=== PATIENT | male | born 1965 | race Caucasian/White ===

== ENCOUNTER 2017-01-10 20:27 | Inpatient (IN) | payer MEDICAID, OTHER ==
[~2017-01-10] VITALS: Ht 167.6 cm; Wt 64.0 kg
[2017-01-10] MEDS ORDERED: METO25 PO (21:28)
[2017-01-10 21:51] LABS: ANION GAP 12 mmol/L (8-16); BASOPHILS # (AUTO) 0.02 K/uL (0.00-0.20); BASOPHILS % (AUTO) 0.7 % (0.0-2.0); CALCIUM, TOTAL 8.6 mg/dL (8.8-10.5); CARBON DIOXIDE 26 mmol/L (22-29); CHLORIDE 102 mmol/L (98-107); CREATININE 0.71 mg/dL (0.60-1.30); EOSINOPHILS # (AUTO) 0.23 K/uL (0.00-0.70); EOSINOPHILS % (AUTO) 6.96 % (1.0-6.0); GLOMERULAR FILTR. RATE CALC > 60 mL/min (>60); HEMATOCRIT 34.9 % (41-53); HEMOGLOBIN 11.8 g/dL (13.5-17.5); LYMPHOCYTES % (AUTO) 29.2 % (22.0-44.0); MEAN CORPUSCULAR HEMOGLOBIN 33.7 pg (26.0-34.0); MEAN CORPUSCULAR HGB CONC 33.9 G/dL (31.0-37.0); MEAN CORPUSCULAR VOLUME 99 fL (80-100); MONOCYTES # (AUTO) 0.3 K/uL (0.1-1.0); MONOCYTES % (AUTO) 8.2 % (2.0-9.0); NEUTROPHILS # (AUTO) 1.8 K/uL (1.8-7.7); POTASSIUM 3.5 mmol/L (3.5-5.1); RED BLOOD CELL COUNT(AUTO) 3.51 MIL/uL (4.50-5.90); RED CELL DISTRIBUTION WIDTH 14.8 % (11.5-14.5); SODIUM SERUM 140 mmol/L (136-145); UREA NITROGEN, BLOOD 7 mg/dL (7-18); WHITE BLOOD COUNT (AUTO) 3.3 K/uL (4.5-11.0)
[2017-01-10 21:56] LABS: ALANINE AMINOTRANSFERASE 40 U/L (12-78); ALBUMIN 4.1 g/dL (3.4-5.0); ASPARTATE AMINOTRANSFERASE 56 U/L (15-37); BILIRUBIN,TOTAL 1.3 mg/dL (0.1-1.0); TOTAL PROTEIN, SERUM 9.2 g/dL (6.4-8.2)
[2017-01-10 22:26] LABS: PLATELET COUNT (AUTO) 51 K/uL (150-450)
[2017-01-10] MEDS ORDERED: LORazepam 2 MG TABLET PO ONE (23:45)
[2017-01-11] VITALS (12 sets, daily range): BP systolic 94–121; BP diastolic 42–69
[2017-01-11] MEDS ORDERED: OLANZapine 5 MG RAPDIS TABLET PO PRN (05:30)
[2017-01-11] MEDS ORDERED: ZOLPIDEM TARTRATE 10 MG TABLET PO PRN (05:30)
[2017-01-11] MEDS ORDERED: LORazepam 2 MG TABLET PO PRN (05:30)
[2017-01-11 05:56] LABS: APPEARANCE,URINE CLEAR (CLEAR); GLUCOSE, URINE (UA) NEGATIVE (NEGATIVE); KETONES,URINE NEGATIVE (NEGATIVE); LEUKOCYTE ESTERASE ,URINE NEGATIVE (NEGATIVE); OCCULT BLOOD,URINE NEGATIVE (NEGATIVE); PH,URINE 5.5 (5.0-8.0); PROTEIN,URINE NEGATIVE (NEGATIVE)
[2017-01-11 05:57] LABS: ADD UA MICROSCOPIC NO
[2017-01-11 06:06] LABS: CHOL/HDL RATIO 1.8 (4.2-7.3)
[2017-01-11] MEDS ORDERED: MAGNESIUM HYDROXIDE SUSPENSION 30 ML UDCUP PO PRN (12:30)
[2017-01-11] MEDS ORDERED: PROMETHAZINE HCL 25 MG TABLET PO PRN (12:30)
[2017-01-11] MEDS ORDERED: HydrOXYzine PAMOATE 50 MG CAPSULE PO PRN (12:30)
[2017-01-11] MEDS ORDERED: CYANOCOBALAMIN 1,000 MCG/ML VIAL IM ONE (12:30)
[2017-01-11] MEDS ORDERED: LOPERAMIDE HCL 2 MG CAPSULE PO PRN ×2 (12:30)
[2017-01-11] MEDS ORDERED: MAG HYDROX/AL HYDROX/SIMETH ES 30 ML SUSPENSION UDCUP PO PRN (12:30)
[2017-01-11] MEDS ORDERED: TUBERCULIN, PURIFIED PROTEIN DERIVATIVE 5 TU/0.1 ML SYG ID ONE (12:30)
[2017-01-11] MEDS ORDERED: DIAZEPAM 10 MG TABLET PO PRN (12:30)
[2017-01-11] MEDS ORDERED: GuaiFENesin/D-METHORPHAN [SUGAR-FREE] 200-20MG/10 ML SYRUP UDCUP PO PRN (12:30)
[2017-01-11] MEDS ORDERED: ACETAMINOPHEN 325 MG TABLET PO PRN (12:30)
[2017-01-11] MEDS ORDERED: PNEUMOCOCCAL VACCINE POLYVALENT 0.5 ML VIAL [PPSV23] IM ONE (12:45)
[2017-01-11] MEDS: THIAMINE HCL 100 MG TABLET PO SCH (16:50)
[2017-01-12] VITALS (8 sets, daily range): BP systolic 105–127; BP diastolic 48–77
[2017-01-12] MEDS ORDERED: DIAZEPAM 10 MG TABLET PO PRN (07:00)
[2017-01-12] MEDS ORDERED: DULoxetine HCL 20 MG CAPSULE PO SCH (09:00)
[2017-01-12] MEDS: THIAMINE HCL 100 MG TABLET PO SCH ×2 (09:01→16:52)
[2017-01-12] MEDS: MULTIVITAMINS WITH MINERALS, THERAPEUTIC TABLET PO SCH (09:01)
[2017-01-12] MEDS: NALTREXONE HCL 50 MG TABLET PO SCH (09:01)
[2017-01-12] MEDS: DIAZEPAM 10 MG TABLET PO SCH ×4 (09:01→21:11)
[2017-01-12] MEDS: FOLIC ACID 1 MG TABLET PO SCH (09:01)
[2017-01-12] MEDS ORDERED: NALT50 PO (14:44)
[2017-01-12] MEDS ORDERED: DULO20CA30 PO (14:44)
[2017-01-13 05:45] VITALS: BP 110/59
[2017-01-13 08:40] VITALS: BP 109/58
[2017-01-13] MEDS ORDERED: DULoxetine HCL 30 MG CAPSULE PO SCH (09:00)
[2017-01-13] MEDS: NALTREXONE HCL 50 MG TABLET PO SCH (10:28)
[2017-01-13] MEDS: MULTIVITAMINS WITH MINERALS, THERAPEUTIC TABLET PO SCH (10:28)
[2017-01-13] MEDS: THIAMINE HCL 100 MG TABLET PO SCH (10:28)
[2017-01-13] MEDS: DIAZEPAM 10 MG TABLET PO SCH (10:28)
[2017-01-13] MEDS: FOLIC ACID 1 MG TABLET PO SCH (10:29)
[2017-01-14] MEDS ORDERED: DIAZEPAM 5 MG TABLET PO PRN (07:00)
[2017-01-14] MEDS ORDERED: DIAZEPAM 5 MG TABLET PO SCH (09:00)
[2017-01-15] MEDS ORDERED: DIAZEPAM 5 MG TABLET PO PRN (07:00)
== END 2017-01-13 11:55 | disposition home or self-care (01) | DRG 751 ==
LOC: EMS 20:29 → B2S 01-11 10:09 → EMS 01-11 10:33
PROVIDERS: ADMIT Psychiatry & Neurology Psychiatry; ATTEND Psychiatry & Neurology Psychiatry
PROC: 3E0234Z Introduction of Serum, Toxoid and Vaccine into Muscle, Percutaneous Approach (ICD-10-PCS; principal; 2017-01-11)
PROC: HZ2ZZZZ Detoxification Services for Substance Abuse Treatment (ICD-10-PCS; 2017-01-11)
PROC: HZ89ZZZ Medication Management for Substance Abuse Treatment, Other Replacement Medication (ICD-10-PCS; 2017-01-11)
PROC: GZ51ZZZ Individual Psychotherapy, Behavioral (ICD-10-PCS; 2017-01-11)
DX: F33.9 Major depressive disorder, recurrent, unspecified (principal); D61.818 Other pancytopenia; R45.851 Suicidal ideations; I10 Essential (primary) hypertension; H54.8 Legal blindness, as defined in USA; D64.9 Anemia, unspecified; F10.10 Alcohol abuse, uncomplicated; Y90.8 Blood alcohol level of 240 mg/100 ml or more; G89.29 Other chronic pain; Z23 Encounter for immunization; Z91.19 Patient's noncompliance with other medical treatment and regimen; Z79.899 Other long term (current) drug therapy
CPT/HCPCS: 90471; 99285; G0480; J3420

== ENCOUNTER 2017-01-30 21:51 | Inpatient (IN) | payer MEDICAID ==
[~2017-01-30] VITALS: Ht 167.6 cm; Wt 62.9 kg
[~2017-01-30 21:51] MED LIST: DULO20CA30 PO; NALT50 PO
[2017-01-30 22:15] LABS: BASOPHILS % (AUTO) 0.6 % (0.0-2.0); EOSINOPHILS % (AUTO) 6.9 % (1.0-6.0); HEMATOCRIT 36.2 % (41-53); LYMPHOCYTES # (AUTO) 1.7 K/uL (1.0-4.8); LYMPHOCYTES % (AUTO) 41.7 % (22.0-44.0); MEAN CORPUSCULAR HEMOGLOBIN 32.5 pg (26.0-34.0); MEAN CORPUSCULAR HGB CONC 33.1 G/dL (31.0-37.0); MEAN CORPUSCULAR VOLUME 98 fL (80-100); MONOCYTES # (AUTO) 0.2 K/uL (0.1-1.0); MONOCYTES % (AUTO) 4.1 % (2.0-9.0); NEUTROPHILS % (AUTO) 46.7 % (40.0-70.0); RED BLOOD CELL COUNT(AUTO) 3.69 MIL/uL (4.50-5.90); RED CELL DISTRIBUTION WIDTH 14.3 % (11.5-14.5); WHITE BLOOD COUNT (AUTO) 4.2 K/uL (4.5-11.0)
[2017-01-30 22:21] LABS: ANION GAP 12 mmol/L (8-16); CALCIUM, TOTAL 8.5 mg/dL (8.8-10.5); CARBON DIOXIDE 25 mmol/L (22-29); CHLORIDE 101 mmol/L (98-107); CREATININE 0.77 mg/dL (0.60-1.30); GLOMERULAR FILTR. RATE CALC > 60 mL/min (>60); POTASSIUM 3.6 mmol/L (3.5-5.1); SODIUM SERUM 138 mmol/L (136-145); UREA NITROGEN, BLOOD 10 mg/dL (7-18)
[2017-01-30 22:25] LABS: PLATELET COUNT (AUTO) 26 K/uL (150-450)
[2017-01-30 22:27] LABS: ALANINE AMINOTRANSFERASE 38 U/L (12-78); ALBUMIN 4.2 g/dL (3.4-5.0); ASPARTATE AMINOTRANSFERASE 75 U/L (15-37); BILIRUBIN,TOTAL 1.3 mg/dL (0.1-1.0); RBC MORPHOLOGY COMMENT NORMAL RBC MORPH; TOTAL PROTEIN, SERUM 9.1 g/dL (6.4-8.2)
[2017-01-30] MEDS ORDERED: QUEtiapine FUMARATE 100 MG TABLET PO PRN (23:15)
[2017-01-30] MEDS ORDERED: ZOLPIDEM TARTRATE 10 MG TABLET PO PRN (23:15)
[2017-01-30 23:31] LABS: ADD UA MICROSCOPIC YES; APPEARANCE,URINE CLEAR (CLEAR); GLUCOSE, URINE (UA) NEGATIVE (NEGATIVE); KETONES,URINE NEGATIVE (NEGATIVE); LEUKOCYTE ESTERASE ,URINE NEGATIVE (NEGATIVE); OCCULT BLOOD,URINE TRACE (NEGATIVE); PROTEIN,URINE NEGATIVE (NEGATIVE)
[2017-01-30 23:34] LABS: CHOL/HDL RATIO 1.5 (4.2-7.3)
[2017-01-30 23:45] LABS: RBC,URINE 0-2 /HPF (0-2)
[2017-01-30 23:46] LABS: WBC,URINE 0-2 /HPF (0-5)
[2017-01-31] MEDS: LORazepam 2 MG TABLET PO PRN (09:10)
[2017-01-31 20:45] VITALS: BP 120/57
[2017-01-31] MEDS ORDERED: LORazepam 2 MG TABLET PO PRN (20:45)
[2017-01-31] MEDS ORDERED: ESZOPICLONE 2 MG TABLET PO PRN (20:45)
[2017-01-31 21:05] VITALS: BP 120/57
[2017-01-31 22:00] VITALS: BP 113/58
[2017-01-31 23:00] VITALS: BP 117/60
[2017-02-01] VITALS: BP 122/59
[2017-02-01 04:00] VITALS: BP 123/60
[2017-02-01] MEDS ORDERED: LORazepam 2 MG TABLET PO PRN (07:00)
[2017-02-01] MEDS: LORazepam 2 MG TABLET PO SCH ×4 (08:19→21:26)
[2017-02-01] MEDS: CarBAMazepine 200 MG TABLET PO SCH ×2 (08:20→17:12)
[2017-02-01] MEDS: DULoxetine HCL 30 MG CAPSULE PO SCH (08:20)
[2017-02-01 08:45] VITALS: BP 127/61
[2017-02-01 08:46] VITALS: BP 127/61
[2017-02-01 12:34] VITALS: BP 136/74
[2017-02-01] MEDS ORDERED: NALT50 PO (17:56)
[2017-02-01] MEDS ORDERED: CARB200T6 PO (17:56)
[2017-02-01] MEDS ORDERED: DULO30CA2 PO (17:56)
[2017-02-01] MEDS ORDERED: GABA-531 PO (17:56)
[2017-02-01] MEDS ORDERED: LOPERAMIDE HCL 2 MG CAPSULE PO PRN (18:00)
[2017-02-01] MEDS ORDERED: HydrOXYzine PAMOATE 50 MG CAPSULE PO PRN (18:00)
[2017-02-01] MEDS ORDERED: CYANOCOBALAMIN 1,000 MCG/ML VIAL IM ONE (18:00)
[2017-02-01] MEDS ORDERED: PROMETHAZINE HCL 25 MG TABLET PO PRN (18:00)
[2017-02-01] MEDS ORDERED: MAGNESIUM HYDROXIDE SUSPENSION 30 ML UDCUP PO PRN (18:00)
[2017-02-01] MEDS ORDERED: MAG HYDROX/AL HYDROX/SIMETH ES 30 ML SUSPENSION UDCUP PO PRN (18:00)
[2017-02-01] MEDS ORDERED: GuaiFENesin/D-METHORPHAN [SUGAR-FREE] 200-20MG/10 ML SYRUP UDCUP PO PRN (18:00)
[2017-02-01] MEDS: GABAPENTIN 300 MG CAPSULE PO SCH (21:26)
[2017-02-01 21:58] VITALS: BP 124/61
[2017-02-02] VITALS (9 sets, daily range): BP systolic 103–128; BP diastolic 58–68
[2017-02-02] MEDS: LORazepam 2 MG TABLET PO PRN (00:27)
[2017-02-02] MEDS ORDERED: DiphenhydrAMINE HCL 50 MG/ML VIAL IM ONE ×2 (08:30→16:30)
[2017-02-02] MEDS ORDERED: HALOPERIDOL LACTATE 5 MG/ML VIAL IM ONE ×2 (08:30→16:30)
[2017-02-02] MEDS: THIAMINE HCL 100 MG TABLET PO SCH ×2 (09:00→17:00)
[2017-02-02] MEDS: NALTREXONE HCL 50 MG TABLET PO SCH (09:00)
[2017-02-02] MEDS: DULoxetine HCL 30 MG CAPSULE PO SCH (09:00)
[2017-02-02] MEDS: FOLIC ACID 1 MG TABLET PO SCH (09:00)
[2017-02-02] MEDS: GABAPENTIN 300 MG CAPSULE PO SCH ×4 (09:00→21:27)
[2017-02-02] MEDS: MULTIVITAMINS WITH MINERALS, THERAPEUTIC TABLET PO SCH (09:00)
[2017-02-02] MEDS: LORazepam 2 MG TABLET PO SCH ×4 (09:00→21:27)
[2017-02-02] MEDS: CarBAMazepine 200 MG TABLET PO SCH ×2 (09:00→17:00)
[2017-02-02] MEDS ORDERED: LORazepam 2 MG/ML VIAL ONE (16:25)
[2017-02-02] MEDS ORDERED: LORazepam 2 MG/ML VIAL IM ONE (16:30)
[2017-02-03 04:11] VITALS: BP 98/61
[2017-02-03] MEDS ORDERED: LORazepam 1 MG TABLET PO PRN (07:00)
[2017-02-03] MEDS ORDERED: LORazepam 1 MG TABLET PO SCH (09:00)
[2017-02-03] MEDS: NALTREXONE HCL 50 MG TABLET PO SCH (09:30)
[2017-02-03] MEDS: GABAPENTIN 300 MG CAPSULE PO SCH (09:30)
[2017-02-03] MEDS: FOLIC ACID 1 MG TABLET PO SCH (09:30)
[2017-02-03] MEDS: THIAMINE HCL 100 MG TABLET PO SCH (09:31)
[2017-02-03] MEDS: MULTIVITAMINS WITH MINERALS, THERAPEUTIC TABLET PO SCH (09:31)
[2017-02-03] MEDS: CarBAMazepine 200 MG TABLET PO SCH (09:31)
[2017-02-03] MEDS ORDERED: IBUPROFEN 600 MG TABLET PO PRN (10:00)
[2017-02-03] MEDS ORDERED: ACETAMINOPHEN 325 MG TABLET PO PRN (10:00)
[2017-02-03 10:09] VITALS: BP 100/50
[2017-02-04] MEDS ORDERED: LORazepam 1 MG TABLET PO PRN (07:00)
[2017-02-04] MEDS ORDERED: LIDOCAINE HCL/PF 1% 30 ML VIAL ONE (10:42)
[2017-02-04] MEDS ORDERED: SODIUM CHLORIDE 0.9% 100 ML ONE (10:42)
[2017-02-04] MEDS ORDERED: LIDOCAINE HCL 1%/EPI 1:200,000/PF 30 ML VIAL ONE (10:43)
[2017-02-04] MEDS ORDERED: VANCOMYCIN HCL 1 GM/VIAL ONE (10:44)
[2017-02-04] MEDS ORDERED: GELATIN SPONGE,ABSORBABLE 100 MM TP ONE (10:44)
[2017-02-04] MEDS ORDERED: THROMBIN, BOVINE 20000 UNITS/VIAL POWDER TP ONE (10:44)
[2017-02-04] MEDS ORDERED: BACITRACIN 28.4 GM OINTMENT TP ONE (10:45)
[2017-02-04] MEDS ORDERED: HEPARIN SODIUM 1000 UNITS/NS 500 ML ONE (10:45)
[2017-02-04] MEDS ORDERED: LOPERAMIDE HCL 2 MG CAPSULE PO PRN (18:00)
== END 2017-02-03 11:45 | disposition short-term general hospital (02) | DRG 751 ==
LOC: EMS 21:54 → 3EI 01-31 08:02 → 3EC 02-02 19:13
PROVIDERS: ADMIT Psychiatry & Neurology Psychiatry; ATTEND Psychiatry & Neurology Psychiatry
DX: F33.2 Major depressive disorder, recurrent severe without psychotic features (principal); R45.851 Suicidal ideations; R16.0 Hepatomegaly, not elsewhere classified; K70.10 Alcoholic hepatitis without ascites; I10 Essential (primary) hypertension; D50.9 Iron deficiency anemia, unspecified; F10.229 Alcohol dependence with intoxication, unspecified; Z91.14 Patient's other noncompliance with medication regimen; H54.8 Legal blindness, as defined in USA; I35.1 Nonrheumatic aortic (valve) insufficiency; Y90.8 Blood alcohol level of 240 mg/100 ml or more; Z78.1 Physical restraint status
CPT/HCPCS: 70450; 99285; G0480; J1200; J1630; J1644; J2060; J3370; J3420; J3490; J7050

== ENCOUNTER 2017-02-03 12:00 | Inpatient (IN) | payer OTHER ==
[~2017-02-03 12:00] MED LIST changes: +AMOX500C2 PO; +CARB200T6 PO; +DULO30CA2 PO; +FERR324T4 PO; +GABA-531 PO; +METO25 PO; +OXYC5TAB3 PO
[2017-02-03 14:40] VITALS: BP 106/56
[2017-02-03 16:00] VITALS: BP 98/52
[2017-02-03] MEDS ORDERED: BISACODYL 10 MG RECTAL RECTAL SUPPOSITORY PR PRN (17:15)
[2017-02-03] MEDS ORDERED: ZOLPIDEM TARTRATE 5 MG TABLET PO PRN (17:15)
[2017-02-03] MEDS ORDERED: MAGNESIUM HYDROXIDE SUSPENSION 30 ML UDCUP PO PRN (17:15)
[2017-02-03 20:00] VITALS: BP 106/55
[2017-02-03] MEDS: CarBAMazepine 200 MG TABLET PO SCH (21:04)
[2017-02-03] MEDS: GABAPENTIN 300 MG CAPSULE PO SCH (21:04)
[2017-02-03 23:00] VITALS: BP 104/44
[2017-02-03] MEDS: ACETAMINOPHEN 325 MG TABLET PO PRN (23:06)
[2017-02-04] VITALS (20 sets, daily range): BP systolic 90–163; BP diastolic 29–75
[2017-02-04] MEDS ORDERED: FentaNYL CITRATE-PF 100 MCG/2 ML VIAL IVP ONE ×2 (00:11→19:15)
[2017-02-04] MEDS ORDERED: ROCURONIUM BROMIDE 10 MG/ML 5 ML VIAL IVP ONE ×2 (00:11→00:19)
[2017-02-04] MEDS ORDERED: PHENYLEPHRINE HCL 10 MG/ML VIAL IVP ONE (00:11)
[2017-02-04] MEDS ORDERED: MIDAZOLAM HCL 2 MG/2 ML VIAL IVP ONE ×2 (00:11→19:15)
[2017-02-04] MEDS ORDERED: DEXAMETHASONE SOD PHOS 4 MG/ML VIAL IVP ONE (00:11)
[2017-02-04] MEDS ORDERED: 0.9% SODIUM CHLORIDE 10 ML VIAL IVP ONE (00:11)
[2017-02-04] MEDS ORDERED: HYDROmorphone 2 MG/ML SYRINGE IVP ONE (00:11)
[2017-02-04] MEDS ORDERED: ETOMIDATE 2 MG/ML 10 ML VIAL IVP ONE (00:19)
[2017-02-04] MEDS: ONDANSETRON HCL 4 MG/2 ML VIAL IVP PRN ×2 (00:44→08:56)
[2017-02-04 06:06] LABS: BASOPHILS % (AUTO) 0.1 % (0.0-2.0); EOSINOPHILS % (AUTO) 0.1 % (1.0-6.0); HEMATOCRIT 25.2 % (41-53); HEMOGLOBIN 8.4 g/dL (13.5-17.5); LYMPHOCYTES # (AUTO) 0.2 K/uL (1.0-4.8); LYMPHOCYTES % (AUTO) 3.4 % (22.0-44.0); MEAN CORPUSCULAR HEMOGLOBIN 33.3 pg (26.0-34.0); MEAN CORPUSCULAR HGB CONC 33.4 G/dL (31.0-37.0); MEAN CORPUSCULAR VOLUME 100 fL (80-100); MONOCYTES # (AUTO) 0.4 K/uL (0.1-1.0); MONOCYTES % (AUTO) 7.2 % (2.0-9.0); NEUTROPHILS # (AUTO) 5.4 K/uL (1.8-7.7); PLATELET COUNT (AUTO) 33 K/uL (150-450); RED BLOOD CELL COUNT(AUTO) 2.52 MIL/uL (4.50-5.90); RED CELL DISTRIBUTION WIDTH 13.8 % (11.5-14.5); WHITE BLOOD COUNT (AUTO) 6.1 K/uL (4.5-11.0)
[2017-02-04 06:19] LABS: ANION GAP 9 mmol/L (8-16); CALCIUM, TOTAL 8.3 mg/dL (8.8-10.5); CARBON DIOXIDE 26 mmol/L (22-29); CHLORIDE 98 mmol/L (98-107); CHOL/HDL RATIO 1.8 (4.2-7.3); CREATINE KINASE, TOTAL 275 U/L (39-308); CREATININE 0.73 mg/dL (0.60-1.30); GLOMERULAR FILTR. RATE CALC > 60 mL/min (>60); POTASSIUM 3.4 mmol/L (3.5-5.1); SODIUM SERUM 133 mmol/L (136-145); UREA NITROGEN, BLOOD 15 mg/dL (7-18)
[2017-02-04 06:27] LABS: CREATINE KINASE MB < 0.5 ng/mL (0-5)
[2017-02-04 07:31] LABS: NEUTROPHILS % (AUTO) 89.2 % (40.0-70.0)
[2017-02-04 07:45] LABS: HEMOGLOBIN A1C 4.7 % (4.5-6.2)
[2017-02-04] MEDS: FOLIC ACID 1 MG TABLET PO SCH (09:00)
[2017-02-04] MEDS ORDERED: DULoxetine HCL 30 MG CAPSULE PO SCH (09:00)
[2017-02-04] MEDS: THIAMINE HCL 100 MG TABLET PO SCH (09:00)
[2017-02-04] MEDS: GABAPENTIN 300 MG CAPSULE PO SCH ×4 (09:00→21:00)
[2017-02-04] MEDS: PANTOPRAZOLE SODIUM 40 MG DR TABLET PO SCH (09:00)
[2017-02-04] MEDS: CarBAMazepine 200 MG TABLET PO SCH ×2 (09:00→21:00)
[2017-02-04 09:33] LABS: INR 1.1 (0.9-1.1); PROTHROMBIN TIME 12.1 SEC (9.4-11.6)
[2017-02-04] MEDS ORDERED: POTASSIUM CHL 10 MEQ/WATER 200 ML IV ONE (09:52)
[2017-02-04] MEDS ORDERED: SODIUM CHLORIDE 0.9% 1,000 ML IV ONE ×2 (09:56→17:03)
[2017-02-04] MEDS: POTASSIUM CHL 10 MEQ/WATER 50 ML IV SCH ×4 (10:30→13:40)
[2017-02-04] MEDS ORDERED: HEPARIN SODIUM 1000 UNITS/NS 0 ML ONE (11:04)
[2017-02-04] MEDS ORDERED: SODIUM CHLORIDE 0.9% 250 ML IV ONE ×2 (15:14→18:49)
[2017-02-04] MEDS ORDERED: RAPID SEQUENCE KIT [RSI] 1 EACH KIT ONE ×2 (15:26)
[2017-02-04] MEDS ORDERED: SODIUM CHLORIDE 0.9% 500 ML IV ONE ×2 (15:26→16:36)
[2017-02-04] MEDS ORDERED: MANNITOL 25%-12.5 GM/50 ML VIAL IVP ONE ×3 (15:44→16:00)
[2017-02-04] MEDS ORDERED: SODIUM CHLORIDE 0.9% 100 ML ONE ×2 (15:46→15:59)
[2017-02-04] MEDS ORDERED: SODIUM CHLORIDE 0.9% 10 ML ONE (16:08)
[2017-02-04] MEDS ORDERED: BACITRACIN 50,000 UNITS/VIAL ONE (16:08)
[2017-02-04 16:26] LABS: ABG A-A DIFF O2 284.4 mmHg (10-20.0); ABG BASE EXCESS -0.6 mmol/L (-2.0-3.0); ABG HCO3 24.4 mmol/L (22.0-26.0); ABG OXYHEMOGLOBIN 97.8 % (94.0-100.0); ABG PCO2 26 mmHg (35-45); ABG PH 7.544 (7.35-7.450); TEMPERATURE, FAHRENHEIT, BG 98.6 FAHREN (96.0-98.6)
[2017-02-04] MEDS ORDERED: PHENYTOIN SODIUM 1,000 MG in SODIUM CHLORIDE 0.9% 150 ML IV ONE (17:00)
[2017-02-04] MEDS ORDERED: HydrALAZINE HCL 20 MG/ML VIAL IVP PRN (18:00)
[2017-02-04] MEDS ORDERED: FentaNYL CITRATE-PF 100 MCG/2 ML VIAL ONE (18:30)
[2017-02-04] MEDS ORDERED: NITROGLYCERIN 50 MG/D5% WATER 250 ML IV PRN (18:30)
[2017-02-04] MEDS ORDERED: MIDAZOLAM HCL 2 MG/2 ML VIAL ONE (18:30)
[2017-02-04] MEDS ORDERED: PROPOFOL 1000 MG/ISO-OSM 100 ML IV ONE (18:58)
[2017-02-04] MEDS: CeFAZolin 2 GM/DEXTROSE 50 ML IV SCH (20:12)
[2017-02-04] MEDS: PROPOFOL 1000 MG/ISO-OSM 100 ML IV PRN (20:53)
[2017-02-04] MEDS: LACTULOSE 20 GM/30 ML SOLUTION UDCUP PO SCH (21:00)
[2017-02-04 21:15] LABS: ABG A-A DIFF O2 86.8 mmHg (10-20.0); ABG BASE EXCESS 2.8 mmol/L (-2.0-3.0); ABG HCO3 26.8 mmol/L (22.0-26.0); ABG OXYHEMOGLOBIN 98.4 % (94.0-100.0); ABG PCO2 38 mmHg (35-45); ABG PH 7.467 (7.35-7.450); ALLEN TEST, BLOOD GAS Positive; TEMPERATURE, FAHRENHEIT, BG 98.6 FAHREN (96.0-98.6)
[2017-02-04 23:08] LABS: EOSINOPHILS % (AUTO) 0 % (1.0-6.0); LYMPHOCYTES # (AUTO) 0.3 K/uL (1.0-4.8); MEAN CORPUSCULAR HEMOGLOBIN 32.9 pg (26.0-34.0); MEAN CORPUSCULAR HGB CONC 33.8 G/dL (31.0-37.0); MEAN CORPUSCULAR VOLUME 97 fL (80-100); MONOCYTES # (AUTO) 0.9 K/uL (0.1-1.0); MONOCYTES % (AUTO) 10.4 % (2.0-9.0); NEUTROPHILS # (AUTO) 7.4 K/uL (1.8-7.7); PLATELET COUNT (AUTO) 113 K/uL (150-450); RED BLOOD CELL COUNT(AUTO) 1.98 MIL/uL (4.50-5.90); WHITE BLOOD COUNT (AUTO) 8.6 K/uL (4.5-11.0)
[2017-02-04 23:19] LABS: ALANINE AMINOTRANSFERASE 28 U/L (12-78); ALBUMIN 3.4 g/dL (3.4-5.0); ANION GAP 6 mmol/L (8-16); ASPARTATE AMINOTRANSFERASE 34 U/L (15-37); CALCIUM, TOTAL 8.1 mg/dL (8.8-10.5); CARBON DIOXIDE 28 mmol/L (22-29); CHLORIDE 102 mmol/L (98-107); CREATININE 0.67 mg/dL (0.60-1.30); GLOMERULAR FILTR. RATE CALC > 60 mL/min (>60); POTASSIUM 3.6 mmol/L (3.5-5.1); SODIUM SERUM 136 mmol/L (136-145); TOTAL PROTEIN, SERUM 7.1 g/dL (6.4-8.2); UREA NITROGEN, BLOOD 11 mg/dL (7-18)
[2017-02-04 23:22] LABS: HEMOGLOBIN 6.5 g/dL (13.5-17.5)
[2017-02-04 23:23] LABS: HEMATOCRIT 19.3 % (41-53); NEUTROPHILS % (AUTO) 85.6 % (40.0-70.0)
[2017-02-04 23:57] LABS: FIBRINOGEN 293 mg/dL (200-400); INR 1.2 (0.9-1.1); PARTIAL THROMBOPLASTIN TIME 26 SEC (25-35); PROTHROMBIN TIME 12.3 SEC (9.4-11.6)
[2017-02-05] VITALS (18 sets, daily range): BP systolic 98–134; BP diastolic 32–52
[2017-02-05] MEDS ORDERED: SODIUM CHLORIDE 0.9% 250 ML IV ONE ×2 (02:24→10:12)
[2017-02-05] MEDS: CeFAZolin 2 GM/DEXTROSE 50 ML IV SCH ×3 (03:41→18:50)
[2017-02-05] MEDS: PROPOFOL 1000 MG/ISO-OSM 100 ML IV PRN (05:38)
[2017-02-05 06:05] LABS: BASOPHILS % (AUTO) 0.2 % (0.0-2.0); EOSINOPHILS % (AUTO) 0.2 % (1.0-6.0); HEMATOCRIT 24.8 % (41-53); HEMOGLOBIN 8.3 g/dL (13.5-17.5); LYMPHOCYTES # (AUTO) 0.7 K/uL (1.0-4.8); LYMPHOCYTES % (AUTO) 9.2 % (22.0-44.0); MEAN CORPUSCULAR HEMOGLOBIN 31.3 pg (26.0-34.0); MEAN CORPUSCULAR HGB CONC 33.4 G/dL (31.0-37.0); MEAN CORPUSCULAR VOLUME 94 fL (80-100); MONOCYTES # (AUTO) 1.2 K/uL (0.1-1.0); MONOCYTES % (AUTO) 16.3 % (2.0-9.0); NEUTROPHILS # (AUTO) 5.5 K/uL (1.8-7.7); NEUTROPHILS % (AUTO) 74.1 % (40.0-70.0); PLATELET COUNT (AUTO) 96 K/uL (150-450); RED BLOOD CELL COUNT(AUTO) 2.64 MIL/uL (4.50-5.90); WHITE BLOOD COUNT (AUTO) 7.4 K/uL (4.5-11.0)
[2017-02-05 06:33] LABS: INR 1.2 (0.9-1.1); PROTHROMBIN TIME 12.6 SEC (9.4-11.6)
[2017-02-05 06:54] LABS: ANION GAP 7 mmol/L (8-16); CARBON DIOXIDE 27 mmol/L (22-29); CHLORIDE 102 mmol/L (98-107); CREATININE 0.63 mg/dL (0.60-1.30); GLOMERULAR FILTR. RATE CALC > 60 mL/min (>60); POTASSIUM 3.3 mmol/L (3.5-5.1); SODIUM SERUM 136 mmol/L (136-145); UREA NITROGEN, BLOOD 10 mg/dL (7-18)
[2017-02-05] MEDS ORDERED: NITROGLYCERIN 50 MG/D5% WATER 250 ML IV PRN (07:01)
[2017-02-05] MEDS ORDERED: POTASSIUM CHLORIDE 20 MEQ ER TABLET PO ONE (07:30)
[2017-02-05] MEDS: CarBAMazepine 200 MG TABLET PO SCH ×2 (09:00→21:00)
[2017-02-05] MEDS: GABAPENTIN 300 MG CAPSULE PO SCH ×3 (09:00→16:00)
[2017-02-05] MEDS: PANTOPRAZOLE SODIUM 40 MG DR TABLET PO SCH (09:00)
[2017-02-05] MEDS: FOLIC ACID 1 MG TABLET PO SCH (09:00)
[2017-02-05] MEDS: THIAMINE HCL 100 MG TABLET PO SCH (09:00)
[2017-02-05] MEDS: LACTULOSE 20 GM/30 ML SOLUTION UDCUP PO SCH ×2 (09:00→21:00)
[2017-02-05 09:47] LABS: RBC MORPHOLOGY COMMENT ABNORMAL RBC MORPH
[2017-02-05] MEDS: POTASSIUM CHL 10 MEQ/WATER 50 ML IV SCH ×6 (12:04→23:19)
[2017-02-05] MEDS: NOREPINEPHRINE 4 MG/D5%-WATER 250 ML IV PRN (14:52)
[2017-02-05 15:59] LABS: HEPATITIS Bs ANTIGEN SCREEN P Negative (Negative); HEPATITIS C AB SCREEN <0.1 s/co ratio (0.0-0.9)
[2017-02-05] MEDS: FentaNYL CITRATE PF 500 MCG in DEXTROSE 5%-WATER 90 ML IV PRN (17:18)
[2017-02-05] MEDS: ACETAMINOPHEN 650 MG/ISO-OSM 65 ML IV PRN (20:05)
[2017-02-05 21:33] LABS: APPEARANCE,URINE CLEAR (CLEAR); GLUCOSE, URINE (UA) NEGATIVE (NEGATIVE); KETONES,URINE 40 mg/dL (NEGATIVE); OCCULT BLOOD,URINE NEGATIVE (NEGATIVE); PROTEIN,URINE TRACE (NEGATIVE)
[2017-02-05 21:44] LABS: ADD UA MICROSCOPIC YES; LEUKOCYTE ESTERASE ,URINE TRACE (NEGATIVE)
[2017-02-05] MEDS ORDERED: POTASSIUM CHLORIDE 20 MEQ ER TABLET PO PRN (22:00)
[2017-02-06] VITALS (16 sets, daily range): BP systolic 92–123; BP diastolic 24–70
[2017-02-06] MEDS: POTASSIUM CHL 10 MEQ/WATER 50 ML IV SCH ×2 (00:11→01:30)
[2017-02-06] MEDS: CeFAZolin 2 GM/DEXTROSE 50 ML IV SCH ×3 (03:11→18:30)
[2017-02-06 06:34] LABS: BASOPHILS % (AUTO) 0.2 % (0.0-2.0); EOSINOPHILS % (AUTO) 0 % (1.0-6.0); LYMPHOCYTES # (AUTO) 0.9 K/uL (1.0-4.8); LYMPHOCYTES % (AUTO) 10.5 % (22.0-44.0); MEAN CORPUSCULAR HEMOGLOBIN 31.3 pg (26.0-34.0); MEAN CORPUSCULAR HGB CONC 32.9 G/dL (31.0-37.0); MEAN CORPUSCULAR VOLUME 95 fL (80-100); MONOCYTES # (AUTO) 1.2 K/uL (0.1-1.0); MONOCYTES % (AUTO) 14.5 % (2.0-9.0); NEUTROPHILS # (AUTO) 6.5 K/uL (1.8-7.7); NEUTROPHILS % (AUTO) 74.8 % (40.0-70.0); PLATELET COUNT (AUTO) 101 K/uL (150-450); RED BLOOD CELL COUNT(AUTO) 2.13 MIL/uL (4.50-5.90); RED CELL DISTRIBUTION WIDTH 17.1 % (11.5-14.5); WHITE BLOOD COUNT (AUTO) 8.6 K/uL (4.5-11.0)
[2017-02-06 06:41] LABS: ANION GAP 10 mmol/L (8-16); CALCIUM, TOTAL 7.8 mg/dL (8.8-10.5); CARBON DIOXIDE 22 mmol/L (22-29); CHLORIDE 102 mmol/L (98-107); CREATININE 0.59 mg/dL (0.60-1.30); GLOMERULAR FILTR. RATE CALC > 60 mL/min (>60); POTASSIUM 4.7 mmol/L (3.5-5.1); SODIUM SERUM 134 mmol/L (136-145); UREA NITROGEN, BLOOD 15 mg/dL (7-18)
[2017-02-06 06:53] LABS: HEMOGLOBIN 6.7 g/dL (13.5-17.5)
[2017-02-06 06:54] LABS: HEMATOCRIT 20.2 % (41-53)
[2017-02-06] MEDS ORDERED: ACETAMINOPHEN 325 MG TABLET PO ONE (07:00)
[2017-02-06] MEDS ORDERED: FUROSEMIDE 20 MG/2 ML VIAL IVP ONE ×3 (07:00→08:00)
[2017-02-06] MEDS ORDERED: DiphenhydrAMINE HCL 50 MG/ML VIAL IVP ONE ×2 (07:00→08:00)
[2017-02-06 08:19] LABS: ABG BASE EXCESS -1.2 mmol/L (-2.0-3.0); ABG HCO3 23.8 mmol/L (22.0-26.0); ABG PCO2 26 mmHg (35-45); ABG PH 7.535 (7.35-7.450); TEMPERATURE, FAHRENHEIT, BG 98.6 FAHREN (96.0-98.6)
[2017-02-06] MEDS: PROPOFOL 1000 MG/ISO-OSM 100 ML IV PRN ×2 (08:21→20:39)
[2017-02-06] MEDS: ACETAMINOPHEN 650 MG/ISO-OSM 65 ML IV PRN (08:31)
[2017-02-06] MEDS ORDERED: SODIUM CHLORIDE 0.9% 250 ML IV ONE (08:56)
[2017-02-06] MEDS: LACTULOSE 20 GM/30 ML SOLUTION UDCUP PO SCH ×2 (09:00→20:38)
[2017-02-06] MEDS: GABAPENTIN 300 MG CAPSULE PO SCH ×4 (09:00→20:37)
[2017-02-06] MEDS: NOREPINEPHRINE 4 MG/D5%-WATER 250 ML IV PRN ×2 (09:05→18:31)
[2017-02-06] MEDS: FentaNYL CITRATE PF 500 MCG in DEXTROSE 5%-WATER 90 ML IV PRN (14:12)
[2017-02-06] MEDS: CarBAMazepine 200 MG TABLET PO SCH (20:38)
[2017-02-07] VITALS (8 sets, daily range): BP systolic 97–155; BP diastolic 29–55
[2017-02-07] MEDS ORDERED: FentaNYL CITRATE-PF 100 MCG/2 ML VIAL IVP ONE (00:23)
[2017-02-07] MEDS ORDERED: MIDAZOLAM HCL 2 MG/2 ML VIAL IVP ONE (00:23)
[2017-02-07] MEDS ORDERED: 0.9% SODIUM CHLORIDE 10 ML VIAL IVP ONE (00:23)
[2017-02-07] MEDS ORDERED: PHENYLEPHRINE HCL 10 MG/ML VIAL IVP ONE (00:23)
[2017-02-07] MEDS ORDERED: ROCURONIUM BROMIDE 10 MG/ML 5 ML VIAL IVP ONE (00:23)
[2017-02-07] MEDS: CeFAZolin 2 GM/DEXTROSE 50 ML IV SCH ×3 (02:59→19:30)
[2017-02-07] MEDS: FentaNYL CITRATE PF 500 MCG in DEXTROSE 5%-WATER 90 ML IV PRN ×2 (03:49→15:24)
[2017-02-07] MEDS: NOREPINEPHRINE 4 MG/D5%-WATER 250 ML IV PRN ×2 (03:50→22:29)
[2017-02-07] MEDS: PROPOFOL 1000 MG/ISO-OSM 100 ML IV PRN ×3 (06:26→22:17)
[2017-02-07 08:02] LABS: BASOPHILS % (AUTO) 0.2 % (0.0-2.0); EOSINOPHILS % (AUTO) 1.1 % (1.0-6.0); HEMATOCRIT 23.9 % (41-53); HEMOGLOBIN 7.7 g/dL (13.5-17.5); LYMPHOCYTES # (AUTO) 1.1 K/uL (1.0-4.8); LYMPHOCYTES % (AUTO) 9.5 % (22.0-44.0); MEAN CORPUSCULAR HEMOGLOBIN 30.5 pg (26.0-34.0); MEAN CORPUSCULAR HGB CONC 32.4 G/dL (31.0-37.0); MEAN CORPUSCULAR VOLUME 94 fL (80-100); MONOCYTES % (AUTO) 8.8 % (2.0-9.0); NEUTROPHILS # (AUTO) 9.3 K/uL (1.8-7.7); NEUTROPHILS % (AUTO) 80.4 % (40.0-70.0); PLATELET COUNT (AUTO) 124 K/uL (150-450); RED BLOOD CELL COUNT(AUTO) 2.54 MIL/uL (4.50-5.90); RED CELL DISTRIBUTION WIDTH 17.5 % (11.5-14.5); WHITE BLOOD COUNT (AUTO) 11.6 K/uL (4.5-11.0)
[2017-02-07 08:11] LABS: ANION GAP 8 mmol/L (8-16); CALCIUM, TOTAL 7.5 mg/dL (8.8-10.5); CARBON DIOXIDE 25 mmol/L (22-29); CHLORIDE 99 mmol/L (98-107); CREATININE 0.76 mg/dL (0.60-1.30); GLOMERULAR FILTR. RATE CALC > 60 mL/min (>60); SODIUM SERUM 132 mmol/L (136-145); UREA NITROGEN, BLOOD 17 mg/dL (7-18)
[2017-02-07 08:14] LABS: POTASSIUM 2.9 mmol/L (3.5-5.1)
[2017-02-07] MEDS: GABAPENTIN 300 MG CAPSULE PO SCH ×4 (08:41→21:14)
[2017-02-07] MEDS: POTASSIUM CHL 10 MEQ/WATER 50 ML IV PRN ×7 (08:41→22:32)
[2017-02-07] MEDS: LACTULOSE 20 GM/30 ML SOLUTION UDCUP PO SCH ×2 (08:41→21:50)
[2017-02-07] MEDS: CarBAMazepine 200 MG TABLET PO SCH ×2 (08:42→21:14)
[2017-02-07] MEDS: PANTOPRAZOLE SODIUM 40 MG DR TABLET PO SCH ×2 (08:42→09:00)
[2017-02-07] MEDS: FOLIC ACID 1 MG TABLET PO SCH ×2 (08:42→09:00)
[2017-02-07] MEDS: THIAMINE HCL 100 MG TABLET PO SCH (08:43)
[2017-02-07 08:49] LABS: RBC MORPHOLOGY COMMENT ABNORMAL RBC MORPH
[2017-02-07] MEDS ORDERED: BACITRACIN 28.4 GM OINTMENT TP ONE (10:33)
[2017-02-07] MEDS ORDERED: SODIUM CHLORIDE 0.9% 50 ML ONE (10:34)
[2017-02-07] MEDS ORDERED: METOCLOPRAMIDE HCL 5 MG/ML 2 ML VIAL IVP ONE (11:45)
[2017-02-07] MEDS ORDERED: SODIUM CHLORIDE 0.9% 1,000 ML IV ONE (13:10)
[2017-02-07] MEDS ORDERED: PHENYTOIN SODIUM 1,000 MG in SODIUM CHLORIDE 0.9% 150 ML IV ONE (13:30)
[2017-02-07] MEDS ORDERED: CeFAZolin 2 GM/DEXTROSE 50 ML IV SCH (13:30)
[2017-02-07] MEDS ORDERED: GELATIN SPONGE,ABSORBABLE 100 MM TP ONE ×2 (13:32→13:53)
[2017-02-07] MEDS ORDERED: THROMBIN, BOVINE 20000 UNITS/VIAL POWDER TP ONE ×2 (13:34→13:53)
[2017-02-07] MEDS ORDERED: PHYTONADIONE 10 MG/1 ML AMP SQ ONE (15:00)
[2017-02-07 17:28] LABS: ABG BASE EXCESS -1.8 mmol/L (-2.0-3.0); ABG HCO3 23.6 mmol/L (22.0-26.0); ABG OXYHEMOGLOBIN 98.5 % (94.0-100.0); ABG PCO2 27 mmHg (35-45); ABG PH 7.507 (7.35-7.450); TEMPERATURE, FAHRENHEIT, BG 98.6 FAHREN (96.0-98.6)
[2017-02-07 20:50] LABS: BASOPHILS % (AUTO) 0.1 % (0.0-2.0); EOSINOPHILS % (AUTO) 1.6 % (1.0-6.0); HEMATOCRIT 25.1 % (41-53); HEMOGLOBIN 8.2 g/dL (13.5-17.5); LYMPHOCYTES # (AUTO) 1.3 K/uL (1.0-4.8); MEAN CORPUSCULAR HEMOGLOBIN 30.8 pg (26.0-34.0); MEAN CORPUSCULAR HGB CONC 32.8 G/dL (31.0-37.0); MEAN CORPUSCULAR VOLUME 94 fL (80-100); MONOCYTES % (AUTO) 8.6 % (2.0-9.0); NEUTROPHILS # (AUTO) 9.3 K/uL (1.8-7.7); NEUTROPHILS % (AUTO) 78.7 % (40.0-70.0); PLATELET COUNT (AUTO) 115 K/uL (150-450); RED BLOOD CELL COUNT(AUTO) 2.68 MIL/uL (4.50-5.90); WHITE BLOOD COUNT (AUTO) 11.8 K/uL (4.5-11.0)
[2017-02-08] VITALS (7 sets, daily range): BP systolic 104–134; BP diastolic 30–50
[2017-02-08] MEDS: CeFAZolin 2 GM/DEXTROSE 50 ML IV SCH ×3 (02:49→18:28)
[2017-02-08] MEDS: FentaNYL CITRATE PF 500 MCG in DEXTROSE 5%-WATER 90 ML IV PRN ×3 (03:40→23:02)
[2017-02-08 05:20] LABS: BASOPHILS % (AUTO) 0.5 % (0.0-2.0); EOSINOPHILS % (AUTO) 1.5 % (1.0-6.0); HEMATOCRIT 24.7 % (41-53); HEMOGLOBIN 8.1 g/dL (13.5-17.5); LYMPHOCYTES # (AUTO) 1.1 K/uL (1.0-4.8); LYMPHOCYTES % (AUTO) 9.9 % (22.0-44.0); MEAN CORPUSCULAR HGB CONC 32.9 G/dL (31.0-37.0); MEAN CORPUSCULAR VOLUME 94 fL (80-100); MONOCYTES # (AUTO) 0.9 K/uL (0.1-1.0); NEUTROPHILS # (AUTO) 8.9 K/uL (1.8-7.7); NEUTROPHILS % (AUTO) 80.1 % (40.0-70.0); PLATELET COUNT (AUTO) 119 K/uL (150-450); RED BLOOD CELL COUNT(AUTO) 2.62 MIL/uL (4.50-5.90); RED CELL DISTRIBUTION WIDTH 15.7 % (11.5-14.5); WHITE BLOOD COUNT (AUTO) 11.2 K/uL (4.5-11.0)
[2017-02-08 05:24] LABS: ANION GAP 7 mmol/L (8-16); CALCIUM, TOTAL 7.2 mg/dL (8.8-10.5); CARBON DIOXIDE 25 mmol/L (22-29); CHLORIDE 99 mmol/L (98-107); CREATININE 0.63 mg/dL (0.60-1.30); GLOMERULAR FILTR. RATE CALC > 60 mL/min (>60); POTASSIUM 3.4 mmol/L (3.5-5.1); SODIUM SERUM 131 mmol/L (136-145); UREA NITROGEN, BLOOD 10 mg/dL (7-18)
[2017-02-08] MEDS: NOREPINEPHRINE 4 MG/D5%-WATER 250 ML IV PRN ×2 (06:54→13:39)
[2017-02-08] MEDS: PROPOFOL 1000 MG/ISO-OSM 100 ML IV PRN ×2 (06:55→15:27)
[2017-02-08 07:56] LABS: APPEARANCE,URINE CLEAR (CLEAR); GLUCOSE, URINE (UA) NEGATIVE (NEGATIVE); KETONES,URINE TRACE mg/dL (NEGATIVE); LEUKOCYTE ESTERASE ,URINE TRACE (NEGATIVE); OCCULT BLOOD,URINE NEGATIVE (NEGATIVE); PH,URINE 7.5 (5.0-8.0); PROTEIN,URINE POS 1+ (NEGATIVE)
[2017-02-08 07:59] LABS: ADD UA MICROSCOPIC YES
[2017-02-08] MEDS: FOLIC ACID 1 MG TABLET PO SCH (09:38)
[2017-02-08] MEDS: GABAPENTIN 300 MG CAPSULE PO SCH ×4 (09:38→22:31)
[2017-02-08] MEDS: THIAMINE HCL 100 MG TABLET PO SCH (09:38)
[2017-02-08] MEDS: LACTULOSE 20 GM/30 ML SOLUTION UDCUP PO SCH ×2 (09:38→22:30)
[2017-02-08] MEDS: CarBAMazepine 200 MG TABLET PO SCH ×2 (09:39→22:30)
[2017-02-08] MEDS: POTASSIUM CHL 10 MEQ/WATER 50 ML IV PRN ×2 (09:39→12:27)
[2017-02-08] MEDS: PANTOPRAZOLE SODIUM 40 MG DR TABLET PO SCH (09:45)
[2017-02-08] MEDS: POTASSIUM CHL 10 MEQ/WATER 50 ML IV SCH ×2 (11:35→12:15)
[2017-02-08 14:16] LABS: ABG BASE EXCESS 0.8 mmol/L (-2.0-3.0); ABG HCO3 25.6 mmol/L (22.0-26.0); ABG PCO2 31 mmHg (35-45); ABG PH 7.503 (7.35-7.450); TEMPERATURE, FAHRENHEIT, BG 98.6 FAHREN (96.0-98.6)
[2017-02-08 18:15] LABS: BASOPHILS % (AUTO) 0.4 % (0.0-2.0); EOSINOPHILS % (AUTO) 2.5 % (1.0-6.0); HEMOGLOBIN 8.1 g/dL (13.5-17.5); LYMPHOCYTES % (AUTO) 12.2 % (22.0-44.0); MEAN CORPUSCULAR HEMOGLOBIN 30.5 pg (26.0-34.0); MEAN CORPUSCULAR HGB CONC 32.5 G/dL (31.0-37.0); MEAN CORPUSCULAR VOLUME 94 fL (80-100); MONOCYTES # (AUTO) 0.6 K/uL (0.1-1.0); MONOCYTES % (AUTO) 7.2 % (2.0-9.0); NEUTROPHILS # (AUTO) 6.2 K/uL (1.8-7.7); NEUTROPHILS % (AUTO) 77.7 % (40.0-70.0); RED BLOOD CELL COUNT(AUTO) 2.67 MIL/uL (4.50-5.90); RED CELL DISTRIBUTION WIDTH 16.2 % (11.5-14.5); WHITE BLOOD COUNT (AUTO) 7.9 K/uL (4.5-11.0)
[2017-02-08 18:27] LABS: PLATELET COUNT (AUTO) 94 K/uL (150-450)
[2017-02-08 18:28] LABS: RBC MORPHOLOGY COMMENT ABNORMAL RBC MORPH
[2017-02-08] MEDS: ACETAMINOPHEN 325 MG TABLET PO PRN (18:29)
[2017-02-09] VITALS (22 sets, daily range): BP systolic 108–149; BP diastolic 28–92
[2017-02-09] MEDS: NOREPINEPHRINE 4 MG/D5%-WATER 250 ML IV PRN ×3 (01:10→23:51)
[2017-02-09] MEDS: PROPOFOL 1000 MG/ISO-OSM 100 ML IV PRN ×3 (01:51→22:07)
[2017-02-09] MEDS: CeFAZolin 2 GM/DEXTROSE 50 ML IV SCH ×3 (03:21→20:28)
[2017-02-09] MEDS: ACETAMINOPHEN 325 MG TABLET PO PRN ×2 (04:37→18:52)
[2017-02-09 05:04] LABS: BASOPHILS # (AUTO) 0.02 K/uL (0.00-0.20); BASOPHILS % (AUTO) 0.3 % (0.0-2.0); EOSINOPHILS # (AUTO) 0.24 K/uL (0.00-0.70); EOSINOPHILS % (AUTO) 3.27 % (1.0-6.0); HEMATOCRIT 22.8 % (41-53); HEMOGLOBIN 7.9 g/dL (13.5-17.5); LYMPHOCYTES # (AUTO) 0.8 K/uL (1.0-4.8); LYMPHOCYTES % (AUTO) 10.4 % (22.0-44.0); MEAN CORPUSCULAR HEMOGLOBIN 32.1 pg (26.0-34.0); MEAN CORPUSCULAR HGB CONC 34.5 G/dL (31.0-37.0); MEAN CORPUSCULAR VOLUME 93 fL (80-100); MONOCYTES # (AUTO) 0.6 K/uL (0.1-1.0); MONOCYTES % (AUTO) 8.6 % (2.0-9.0); NEUTROPHILS # (AUTO) 5.7 K/uL (1.8-7.7); NEUTROPHILS % (AUTO) 77.5 % (40.0-70.0); RED BLOOD CELL COUNT(AUTO) 2.45 MIL/uL (4.50-5.90); RED CELL DISTRIBUTION WIDTH 16.2 % (11.5-14.5); WHITE BLOOD COUNT (AUTO) 7.4 K/uL (4.5-11.0)
[2017-02-09 05:13] LABS: ALANINE AMINOTRANSFERASE 13 U/L (12-78); ALBUMIN 2.2 g/dL (3.4-5.0); ANION GAP 8 mmol/L (8-16); ASPARTATE AMINOTRANSFERASE 22 U/L (15-37); BILIRUBIN,TOTAL 2.3 mg/dL (0.1-1.0); CALCIUM, TOTAL 7.3 mg/dL (8.8-10.5); CARBON DIOXIDE 25 mmol/L (22-29); CHLORIDE 97 mmol/L (98-107); CREATININE 0.61 mg/dL (0.60-1.30); GLOMERULAR FILTR. RATE CALC > 60 mL/min (>60); POTASSIUM 3.4 mmol/L (3.5-5.1); SODIUM SERUM 130 mmol/L (136-145); UREA NITROGEN, BLOOD 7 mg/dL (7-18)
[2017-02-09 07:34] LABS: PLATELET COUNT (AUTO) 85 K/uL (150-450)
[2017-02-09 07:54] LABS: ABG A-A DIFF O2 139.9 mmHg (10-20.0); ABG BASE EXCESS 2.4 mmol/L (-2.0-3.0); ABG HCO3 26.7 mmol/L (22.0-26.0); ABG OXYHEMOGLOBIN 97.3 % (94.0-100.0); ABG PCO2 33 mmHg (35-45); ABG PH 7.502 (7.35-7.450); TEMPERATURE, FAHRENHEIT, BG 98.6 FAHREN (96.0-98.6)
[2017-02-09] MEDS ORDERED: FUROSEMIDE 20 MG/2 ML VIAL IVP ONE (08:30)
[2017-02-09] MEDS ORDERED: DiphenhydrAMINE HCL 50 MG/ML VIAL IVP ONE (08:30)
[2017-02-09] MEDS: GABAPENTIN 300 MG CAPSULE PO SCH ×4 (08:56→20:28)
[2017-02-09] MEDS: FOLIC ACID 1 MG TABLET PO SCH (08:56)
[2017-02-09] MEDS: THIAMINE HCL 100 MG TABLET PO SCH (08:56)
[2017-02-09] MEDS: CarBAMazepine 200 MG TABLET PO SCH ×2 (08:56→20:28)
[2017-02-09] MEDS: PANTOPRAZOLE SODIUM 40 MG DR TABLET PO SCH (08:56)
[2017-02-09] MEDS: POTASSIUM CHL 10 MEQ/WATER 50 ML IV PRN (08:57)
[2017-02-09] MEDS: LACTULOSE 20 GM/30 ML SOLUTION UDCUP PO SCH ×2 (08:57→20:28)
[2017-02-09] MEDS ORDERED: SODIUM CHLORIDE 0.9% 250 ML IV ONE (11:06)
[2017-02-09] MEDS: FentaNYL CITRATE PF 500 MCG in DEXTROSE 5%-WATER 90 ML IV PRN (11:15)
[2017-02-09 14:04] LABS: URIC ACID < 1.0 mg/dL (2.6-7.2)
[2017-02-09 14:10] LABS: OSMOLALITY 281 mOS/kg (270-310)
[2017-02-09 14:27] LABS: THYROID STIMULATING HORMONE 1.79 uIU/mL (0.36-3.74)
[2017-02-09] MEDS ORDERED: SODIUM CHLORIDE 0.9% 500 ML IV ONE (21:20)
[2017-02-10] VITALS (12 sets, daily range): BP systolic 108–141; BP diastolic 32–67
[2017-02-10] MEDS: CeFAZolin 2 GM/DEXTROSE 50 ML IV SCH ×3 (03:35→18:24)
[2017-02-10 05:28] LABS: ANION GAP 8 mmol/L (8-16); CALCIUM, TOTAL 7.5 mg/dL (8.8-10.5); CARBON DIOXIDE 27 mmol/L (22-29); CHLORIDE 98 mmol/L (98-107); GLOMERULAR FILTR. RATE CALC > 60 mL/min (>60); SODIUM SERUM 133 mmol/L (136-145); UREA NITROGEN, BLOOD 8 mg/dL (7-18)
[2017-02-10 05:34] LABS: INR 1.1 (0.9-1.1)
[2017-02-10 05:39] LABS: BASOPHILS # (AUTO) 0.02 K/uL (0.00-0.20); BASOPHILS % (AUTO) 0.3 % (0.0-2.0); EOSINOPHILS # (AUTO) 0.18 K/uL (0.00-0.70); HEMATOCRIT 24.5 % (41-53); HEMOGLOBIN 8.5 g/dL (13.5-17.5); LYMPHOCYTES # (AUTO) 0.6 K/uL (1.0-4.8); MEAN CORPUSCULAR HEMOGLOBIN 31.7 pg (26.0-34.0); MEAN CORPUSCULAR HGB CONC 34.7 G/dL (31.0-37.0); MEAN CORPUSCULAR VOLUME 91 fL (80-100); MONOCYTES # (AUTO) 0.4 K/uL (0.1-1.0); MONOCYTES % (AUTO) 5.9 % (2.0-9.0); NEUTROPHILS # (AUTO) 5.7 K/uL (1.8-7.7); NEUTROPHILS % (AUTO) 83.2 % (40.0-70.0); PLATELET COUNT (AUTO) 113 K/uL (150-450); RED BLOOD CELL COUNT(AUTO) 2.68 MIL/uL (4.50-5.90); RED CELL DISTRIBUTION WIDTH 15.9 % (11.5-14.5); WHITE BLOOD COUNT (AUTO) 6.9 K/uL (4.5-11.0)
[2017-02-10 06:14] LABS: POTASSIUM 2.9 mmol/L (3.5-5.1)
[2017-02-10] MEDS: POTASSIUM CHL 10 MEQ/WATER 50 ML IV PRN ×4 (06:30→10:14)
[2017-02-10] MEDS: FentaNYL CITRATE PF 500 MCG in DEXTROSE 5%-WATER 90 ML IV PRN ×2 (08:17→19:32)
[2017-02-10] MEDS: FOLIC ACID 1 MG TABLET PO SCH (08:17)
[2017-02-10] MEDS: LACTULOSE 20 GM/30 ML SOLUTION UDCUP PO SCH ×2 (08:17→21:05)
[2017-02-10] MEDS: PANTOPRAZOLE SODIUM 40 MG DR TABLET PO SCH (08:18)
[2017-02-10] MEDS: CarBAMazepine 200 MG TABLET PO SCH ×2 (08:18→21:05)
[2017-02-10] MEDS: THIAMINE HCL 100 MG TABLET PO SCH (08:18)
[2017-02-10] MEDS: GABAPENTIN 300 MG CAPSULE PO SCH ×4 (08:19→21:05)
[2017-02-10 09:21] LABS: ABG A-A DIFF O2 73.8 mmHg (10-20.0); ABG BASE EXCESS 2.2 mmol/L (-2.0-3.0); ABG HCO3 26.9 mmol/L (22.0-26.0); ABG OXYHEMOGLOBIN 98.4 % (94.0-100.0); ABG PCO2 27 mmHg (35-45); ABG PH 7.575 (7.35-7.450); TEMPERATURE, FAHRENHEIT, BG 97.8 FAHREN (96.0-98.6)
[2017-02-10] MEDS: NOREPINEPHRINE 4 MG/D5%-WATER 250 ML IV PRN (11:44)
[2017-02-10 13:21] LABS: CREATININE, URINE (mALB) 75.7 mg/dL (Not Estab.)
[2017-02-10] MEDS ORDERED: SODIUM CHLORIDE 0.9% 250 ML IV ONE (16:19)
[2017-02-10] MEDS: ONDANSETRON HCL 4 MG/2 ML VIAL IVP PRN (17:21)
[2017-02-10] MEDS: ACETAMINOPHEN 325 MG TABLET PO PRN (21:06)
[2017-02-11] VITALS (8 sets, daily range): BP systolic 112–130; BP diastolic 33–41
[2017-02-11] MEDS: CeFAZolin 2 GM/DEXTROSE 50 ML IV SCH ×3 (03:08→19:15)
[2017-02-11] MEDS: ACETAMINOPHEN 325 MG TABLET PO PRN (05:25)
[2017-02-11] MEDS: FentaNYL CITRATE PF 500 MCG in DEXTROSE 5%-WATER 90 ML IV PRN ×2 (05:27→14:41)
[2017-02-11] MEDS: NOREPINEPHRINE 4 MG/D5%-WATER 250 ML IV PRN ×2 (05:29→08:23)
[2017-02-11 05:56] LABS: ANION GAP 9 mmol/L (8-16); CALCIUM, TOTAL 7.6 mg/dL (8.8-10.5); CARBON DIOXIDE 26 mmol/L (22-29); CHLORIDE 99 mmol/L (98-107); CREATININE 0.51 mg/dL (0.60-1.30); GLOMERULAR FILTR. RATE CALC > 60 mL/min (>60); SODIUM SERUM 134 mmol/L (136-145); UREA NITROGEN, BLOOD 12 mg/dL (7-18)
[2017-02-11 06:07] LABS: BASOPHILS % (AUTO) 0.1 % (0.0-2.0); EOSINOPHILS % (AUTO) 1.5 % (1.0-6.0); HEMATOCRIT 26.2 % (41-53); HEMOGLOBIN 8.8 g/dL (13.5-17.5); LYMPHOCYTES # (AUTO) 0.6 K/uL (1.0-4.8); MEAN CORPUSCULAR HEMOGLOBIN 31.5 pg (26.0-34.0); MEAN CORPUSCULAR HGB CONC 33.6 G/dL (31.0-37.0); MEAN CORPUSCULAR VOLUME 94 fL (80-100); MONOCYTES # (AUTO) 0.5 K/uL (0.1-1.0); MONOCYTES % (AUTO) 6.5 % (2.0-9.0); NEUTROPHILS # (AUTO) 6.8 K/uL (1.8-7.7); NEUTROPHILS % (AUTO) 83.9 % (40.0-70.0); PLATELET COUNT (AUTO) 128 K/uL (150-450); RED BLOOD CELL COUNT(AUTO) 2.79 MIL/uL (4.50-5.90); RED CELL DISTRIBUTION WIDTH 15.9 % (11.5-14.5); WHITE BLOOD COUNT (AUTO) 8.1 K/uL (4.5-11.0)
[2017-02-11 06:11] LABS: POTASSIUM 2.6 mmol/L (3.5-5.1)
[2017-02-11] MEDS: POTASSIUM CHL 10 MEQ/WATER 50 ML IV PRN ×7 (06:17→17:42)
[2017-02-11] MEDS: THIAMINE HCL 100 MG TABLET PO SCH (08:18)
[2017-02-11] MEDS: FOLIC ACID 1 MG TABLET PO SCH (08:18)
[2017-02-11] MEDS: PANTOPRAZOLE SODIUM 40 MG DR TABLET PO SCH (08:18)
[2017-02-11] MEDS: LACTULOSE 20 GM/30 ML SOLUTION UDCUP PO SCH (08:18)
[2017-02-11] MEDS: CarBAMazepine 200 MG TABLET PO SCH ×2 (08:19→21:18)
[2017-02-11] MEDS: GABAPENTIN 300 MG CAPSULE PO SCH ×4 (08:19→21:18)
[2017-02-11 08:28] LABS: ABG A-A DIFF O2 50.6 mmHg (10-20.0); ABG BASE EXCESS -0.5 mmol/L (-2.0-3.0); ABG HCO3 24.6 mmol/L (22.0-26.0); ABG OXYHEMOGLOBIN 98.5 % (94.0-100.0); ABG PCO2 29 mmHg (35-45); ABG PH 7.507 (7.35-7.450); TEMPERATURE, FAHRENHEIT, BG 98.6 FAHREN (96.0-98.6)
[2017-02-11 15:11] LABS: ABG A-A DIFF O2 72.1 mmHg (10-20.0); ABG BASE EXCESS -0.8 mmol/L (-2.0-3.0); ABG HCO3 24.2 mmol/L (22.0-26.0); ABG OXYHEMOGLOBIN 98.4 % (94.0-100.0); ABG PCO2 33 mmHg (35-45); ABG PH 7.461 (7.35-7.450); TEMPERATURE, FAHRENHEIT, BG 98.6 FAHREN (96.0-98.6)
[2017-02-11 16:50] LABS: ABG BASE EXCESS -0.5 mmol/L (-2.0-3.0); ABG HCO3 24.4 mmol/L (22.0-26.0); ABG OXYHEMOGLOBIN 98.2 % (94.0-100.0); ABG PCO2 33 mmHg (35-45); ABG PH 7.466 (7.35-7.450); TEMPERATURE, FAHRENHEIT, BG 98.6 FAHREN (96.0-98.6)
[2017-02-11] MEDS ORDERED: SODIUM CHLORIDE 0.9% 250 ML IV ONE (16:52)
[2017-02-12] VITALS (7 sets, daily range): BP systolic 105–136; BP diastolic 40–66
[2017-02-12] MEDS: CeFAZolin 2 GM/DEXTROSE 50 ML IV SCH ×3 (03:18→20:48)
[2017-02-12] MEDS: ACETAMINOPHEN 325 MG TABLET PO PRN (03:23)
[2017-02-12 07:38] LABS: PROCALCITONIN (PCT) 0.61 ng/mL (<0.50)
[2017-02-12] MEDS: CarBAMazepine 200 MG TABLET PO SCH ×3 (08:40→21:33)
[2017-02-12] MEDS: PANTOPRAZOLE SODIUM 40 MG DR TABLET PO SCH ×2 (08:40→11:12)
[2017-02-12] MEDS: GABAPENTIN 300 MG CAPSULE PO SCH ×5 (08:40→21:32)
[2017-02-12] MEDS: FOLIC ACID 1 MG TABLET PO SCH ×2 (08:40→11:12)
[2017-02-12] MEDS: THIAMINE HCL 100 MG TABLET PO SCH ×2 (08:41→11:12)
[2017-02-12] MEDS: LACTULOSE 20 GM/30 ML SOLUTION UDCUP PO SCH (08:55)
[2017-02-12] MEDS ORDERED: SODIUM CHLORIDE 0.9% 250 ML IV ONE (20:46)
[2017-02-13] VITALS (7 sets, daily range): BP systolic 103–127; BP diastolic 42–68
[2017-02-13] MEDS: CeFAZolin 2 GM/DEXTROSE 50 ML IV SCH ×3 (02:30→18:46)
[2017-02-13 07:00] LABS: BASOPHILS % (AUTO) 0.3 % (0.0-2.0); EOSINOPHILS % (AUTO) 1.1 % (1.0-6.0); HEMATOCRIT 26.3 % (41-53); HEMOGLOBIN 8.9 g/dL (13.5-17.5); LYMPHOCYTES # (AUTO) 0.5 K/uL (1.0-4.8); LYMPHOCYTES % (AUTO) 10.5 % (22.0-44.0); MEAN CORPUSCULAR HEMOGLOBIN 31.9 pg (26.0-34.0); MEAN CORPUSCULAR VOLUME 94 fL (80-100); MONOCYTES # (AUTO) 0.2 K/uL (0.1-1.0); MONOCYTES % (AUTO) 4.7 % (2.0-9.0); NEUTROPHILS # (AUTO) 3.9 K/uL (1.8-7.7); NEUTROPHILS % (AUTO) 83.4 % (40.0-70.0); PLATELET COUNT (AUTO) 117 K/uL (150-450); RED CELL DISTRIBUTION WIDTH 15.9 % (11.5-14.5); WHITE BLOOD COUNT (AUTO) 4.6 K/uL (4.5-11.0)
[2017-02-13 07:37] LABS: ANION GAP 11 mmol/L (8-16); CARBON DIOXIDE 23 mmol/L (22-29); CHLORIDE 99 mmol/L (98-107); CREATININE 0.53 mg/dL (0.60-1.30); GLOMERULAR FILTR. RATE CALC > 60 mL/min (>60); SODIUM SERUM 133 mmol/L (136-145); UREA NITROGEN, BLOOD 7 mg/dL (7-18)
[2017-02-13 08:18] LABS: POTASSIUM 2.8 mmol/L (3.5-5.1)
[2017-02-13] MEDS ORDERED: SODIUM CHLORIDE 0.9% 100 ML ONE (09:26)
[2017-02-13] MEDS: LACTULOSE 20 GM/30 ML SOLUTION UDCUP PO SCH (09:32)
[2017-02-13] MEDS: POTASSIUM CHL 10 MEQ/WATER 50 ML IV PRN ×6 (09:33→21:10)
[2017-02-13] MEDS: GABAPENTIN 300 MG CAPSULE PO SCH ×4 (09:40→21:09)
[2017-02-13] MEDS: PANTOPRAZOLE SODIUM 40 MG DR TABLET PO SCH (09:40)
[2017-02-13] MEDS: THIAMINE HCL 100 MG TABLET PO SCH (09:40)
[2017-02-13] MEDS: FOLIC ACID 1 MG TABLET PO SCH (09:40)
[2017-02-13] MEDS: CarBAMazepine 200 MG TABLET PO SCH ×2 (09:43→21:09)
[2017-02-14] MEDS: POTASSIUM CHL 10 MEQ/WATER 50 ML IV PRN (00:15)
[2017-02-14] MEDS: CeFAZolin 2 GM/DEXTROSE 50 ML IV SCH ×3 (02:29→18:57)
[2017-02-14 03:56] VITALS: BP 111/58
[2017-02-14] MEDS: ACETAMINOPHEN 325 MG TABLET PO PRN (04:39)
[2017-02-14 07:36] VITALS: BP 104/44
[2017-02-14] MEDS: THIAMINE HCL 100 MG TABLET PO SCH (09:36)
[2017-02-14] MEDS: PANTOPRAZOLE SODIUM 40 MG DR TABLET PO SCH (09:36)
[2017-02-14] MEDS: CarBAMazepine 200 MG TABLET PO SCH ×2 (09:36→20:43)
[2017-02-14] MEDS: LACTULOSE 20 GM/30 ML SOLUTION UDCUP PO SCH (09:36)
[2017-02-14] MEDS: FOLIC ACID 1 MG TABLET PO SCH (09:36)
[2017-02-14] MEDS: GABAPENTIN 300 MG CAPSULE PO SCH ×4 (09:36→20:43)
[2017-02-14 11:39] VITALS: BP 98/41
[2017-02-14 15:10] VITALS: BP 103/54
[2017-02-14 19:52] VITALS: BP 108/52
[2017-02-14] MEDS: OXYGEN THERAPY IH SCH (20:43)
[2017-02-14] MEDS: LORazepam 2 MG/ML VIAL IVP PRN (20:44)
[2017-02-15] VITALS (7 sets, daily range): BP systolic 97–116; BP diastolic 46–89
[2017-02-15] MEDS: CeFAZolin 2 GM/DEXTROSE 50 ML IV SCH (03:12)
[2017-02-15 06:39] LABS: BASOPHILS % (AUTO) 0.9 % (0.0-2.0); EOSINOPHILS % (AUTO) 1.7 % (1.0-6.0); HEMATOCRIT 26.2 % (41-53); HEMOGLOBIN 9.1 g/dL (13.5-17.5); LYMPHOCYTES # (AUTO) 0.6 K/uL (1.0-4.8); LYMPHOCYTES % (AUTO) 15.4 % (22.0-44.0); MEAN CORPUSCULAR HEMOGLOBIN 32.6 pg (26.0-34.0); MEAN CORPUSCULAR HGB CONC 34.5 G/dL (31.0-37.0); MEAN CORPUSCULAR VOLUME 95 fL (80-100); MONOCYTES # (AUTO) 0.2 K/uL (0.1-1.0); MONOCYTES % (AUTO) 6.7 % (2.0-9.0); NEUTROPHILS # (AUTO) 2.8 K/uL (1.8-7.7); NEUTROPHILS % (AUTO) 75.3 % (40.0-70.0); PLATELET COUNT (AUTO) 124 K/uL (150-450); RED BLOOD CELL COUNT(AUTO) 2.77 MIL/uL (4.50-5.90); RED CELL DISTRIBUTION WIDTH 16.8 % (11.5-14.5); WHITE BLOOD COUNT (AUTO) 3.7 K/uL (4.5-11.0)
[2017-02-15 06:58] LABS: ANION GAP 11 mmol/L (8-16); CARBON DIOXIDE 23 mmol/L (22-29); CHLORIDE 102 mmol/L (98-107); CREATININE 0.56 mg/dL (0.60-1.30); GLOMERULAR FILTR. RATE CALC > 60 mL/min (>60); POTASSIUM 3.4 mmol/L (3.5-5.1); SODIUM SERUM 136 mmol/L (136-145); UREA NITROGEN, BLOOD 8 mg/dL (7-18)
[2017-02-15 06:59] LABS: PHOSPHORUS 3.1 mg/dL (2.5-4.9)
[2017-02-15] MEDS: OXYGEN THERAPY IH SCH ×3 (08:00→20:44)
[2017-02-15 08:12] LABS: PROCALCITONIN (PCT) 0.14 ng/mL (<0.50)
[2017-02-15] MEDS: FOLIC ACID 1 MG TABLET PO SCH (09:17)
[2017-02-15] MEDS: GABAPENTIN 300 MG CAPSULE PO SCH ×4 (09:17→20:44)
[2017-02-15] MEDS: LACTULOSE 20 GM/30 ML SOLUTION UDCUP PO SCH (09:17)
[2017-02-15] MEDS: THIAMINE HCL 100 MG TABLET PO SCH (09:18)
[2017-02-15] MEDS: PANTOPRAZOLE SODIUM 40 MG DR TABLET PO SCH (09:18)
[2017-02-15] MEDS: CarBAMazepine 200 MG TABLET PO SCH ×2 (09:18→20:44)
[2017-02-15] MEDS: ALBUTEROL SULFATE 2.5 MG/0.5 ML NEB SOLUTION NEB PRN (17:20)
[2017-02-15] MEDS: IPRATROPIUM BROMIDE 0.5 MG/2.5 ML NEB SOLUTION NEB PRN (17:20)
[2017-02-15] MEDS: LORazepam 2 MG/ML VIAL IVP PRN (20:45)
[2017-02-16 05:20] VITALS: BP 98/63
[2017-02-16 07:17] VITALS: BP 98/45
[2017-02-16] MEDS: ALBUTEROL SULFATE 2.5 MG/0.5 ML NEB SOLUTION NEB PRN (09:22)
[2017-02-16] MEDS: IPRATROPIUM BROMIDE 0.5 MG/2.5 ML NEB SOLUTION NEB PRN (09:22)
[2017-02-16] MEDS: LACTULOSE 20 GM/30 ML SOLUTION UDCUP PO SCH (09:26)
[2017-02-16] MEDS: OXYGEN THERAPY IH SCH (09:26)
[2017-02-16] MEDS: PANTOPRAZOLE SODIUM 40 MG DR TABLET PO SCH (09:28)
[2017-02-16] MEDS: CarBAMazepine 200 MG TABLET PO SCH (09:28)
[2017-02-16] MEDS: THIAMINE HCL 100 MG TABLET PO SCH (09:28)
[2017-02-16] MEDS: FOLIC ACID 1 MG TABLET PO SCH (09:28)
[2017-02-16] MEDS: GABAPENTIN 300 MG CAPSULE PO SCH ×3 (09:28→16:06)
[2017-02-16] MEDS ORDERED: FOLI1 PO (11:35)
[2017-02-16] MEDS ORDERED: CYAN100092 IM (11:35)
[2017-02-16] MEDS ORDERED: LACT30L PO (11:36)
[2017-02-16] MEDS ORDERED: THIA100 PO (11:37)
[2017-02-16] MEDS ORDERED: AUD NEB (11:39)
[2017-02-16] MEDS ORDERED: BISA10S PR (11:41)
[2017-02-16] MEDS ORDERED: IPRNEB IH (11:41)
[2017-02-16] MEDS ORDERED: ONDA4 PO (11:42)
[2017-02-16] MEDS ORDERED: LORA1TAB3 PO (11:42)
[2017-02-16] MEDS ORDERED: CLON.1 PO (11:45)
[2017-02-16] MEDS ORDERED: ZOLP5 PO (11:45)
[2017-02-16] MEDS ORDERED: SUCR1TAB PO (11:46)
[2017-02-16 11:53] VITALS: BP 115/43
[2017-02-16 15:51] VITALS: BP 98/50
[2017-02-16 18:00] VITALS: BP 129/43
== END 2017-02-16 18:15 | DRG 20 ==
LOC: ICU 12:00 → 5N 02-12 19:05
PROVIDERS: ADMIT Internal Medicine Geriatric Medicine; ATTEND Internal Medicine Geriatric Medicine
PROC: 00C40ZZ Extirpation of Matter from Intracranial Subdural Space, Open Approach (ICD-10-PCS; principal; 2017-02-03)
PROC: 5A1955Z Respiratory Ventilation, Greater than 96 Consecutive Hours (ICD-10-PCS; 2017-02-04)
PROC: 0BH17EZ Insertion of Endotracheal Airway into Trachea, Via Natural or Artificial Opening (ICD-10-PCS; 2017-02-04)
PROC: 30233L1 Transfusion of Nonautologous Fresh Plasma into Peripheral Vein, Percutaneous Approach (ICD-10-PCS; 2017-02-04)
PROC: 30233N1 Transfusion of Nonautologous Red Blood Cells into Peripheral Vein, Percutaneous Approach (ICD-10-PCS; 2017-02-04)
PROC: 30233R1 Transfusion of Nonautologous Platelets into Peripheral Vein, Percutaneous Approach (ICD-10-PCS; 2017-02-04)
PROC: 30233K1 Transfusion of Nonautologous Frozen Plasma into Peripheral Vein, Percutaneous Approach (ICD-10-PCS; 2017-02-04)
PROC: 00C40ZZ Extirpation of Matter from Intracranial Subdural Space, Open Approach (ICD-10-PCS; 2017-02-07)
DX: S06.5X9A Traumatic subdural hemorrhage with loss of consciousness of unspecified duration, initial encounter (principal); J96.00 Acute respiratory failure, unspecified whether with hypoxia or hypercapnia; J18.9 Pneumonia, unspecified organism; D61.818 Other pancytopenia; I50.40 Unspecified combined systolic (congestive) and diastolic (congestive) heart failure; R45.851 Suicidal ideations; F10.10 Alcohol abuse, uncomplicated; I35.1 Nonrheumatic aortic (valve) insufficiency; F99 Mental disorder, not otherwise specified; K70.30 Alcoholic cirrhosis of liver without ascites; Z66 Do not resuscitate; N39.0 Urinary tract infection, site not specified; D18.03 Hemangioma of intra-abdominal structures; K72.90 Hepatic failure, unspecified without coma; E87.6 Hypokalemia; R53.81 Other malaise; F32.9 Major depressive disorder, single episode, unspecified; H54.41 Blindness, right eye, normal vision left eye; G89.29 Other chronic pain; M54.5 Low back pain; Z78.1 Physical restraint status; Z91.19 Patient's noncompliance with other medical treatment and regimen; Z82.5 Family history of asthma and other chronic lower respiratory diseases; W19.XXXA Unspecified fall, initial encounter; Y93.89 Activity, other specified; Y92.238 Other place in hospital as the place of occurrence of the external cause; Y99.8 Other external cause status; D62 Acute posthemorrhagic anemia; D69.59 Other secondary thrombocytopenia
CPT/HCPCS: 70450; 76700; 80074; 82043; 82306; 82570; 82607; 82746; 82805; 83036; 83735; 83930; 83935; 84100; 84132; 84133; 84145; 84156; 84300; 84439; 84443; 84540; 84550; 85362; 85379; 85384; 86592; 86850; 86900; 86901; 86920; 86927; 87040; 87070; 87081; 87205; 87324; 87449; 92526; 92610; 93306; 94003; 94640; 97112; 97116; 97163; 97530; C1713; J0131; J0690; J1100; J1165; J1170; J1200; J1644; J1940; J2060; J2150; J2250; J2370; J2405; J2704; J2765; J3010; J3430; J3480; J3490; J7030; J7040; J7050; J7060; P9016; P9017; P9035

== ENCOUNTER 2017-03-29 09:15 | Inpatient (IN) | payer OTHER ==
[~2017-03-29] VITALS: Ht 167.6 cm; Wt 61.8 kg
[~2017-03-29 09:15] MED LIST changes: -AMOX500C2 PO; +AUD NEB; +BISA10S PR; +CLON.1 PO; +CYAN100092 IM; -DULO20CA30 PO; -FERR324T4 PO; +FOLI1 PO; +IPRNEB IH; +LACT30L PO; +LORA1TAB3 PO; -METO25 PO; +ONDA4 PO; -OXYC5TAB3 PO; +SUCR1TAB PO; +THIA100 PO; +ZOLP5 PO
[2017-03-29 11:03] LABS: BASOPHILS % (AUTO) 0.4 % (0.0-2.0); EOSINOPHILS % (AUTO) 3.8 % (1.0-6.0); HEMATOCRIT 27.6 % (41-53); HEMOGLOBIN 9.6 g/dL (13.5-17.5); LYMPHOCYTES # (AUTO) 0.5 K/uL (1.0-4.8); LYMPHOCYTES % (AUTO) 19.2 % (22.0-44.0); MEAN CORPUSCULAR HEMOGLOBIN 32.9 pg (26.0-34.0); MEAN CORPUSCULAR HGB CONC 34.7 G/dL (31.0-37.0); MEAN CORPUSCULAR VOLUME 95 fL (80-100); MONOCYTES # (AUTO) 0.2 K/uL (0.1-1.0); MONOCYTES % (AUTO) 7.3 % (2.0-9.0); NEUTROPHILS % (AUTO) 69.3 % (40.0-70.0); PLATELET COUNT (AUTO) 57 K/uL (150-450); RED BLOOD CELL COUNT(AUTO) 2.91 MIL/uL (4.50-5.90); RED CELL DISTRIBUTION WIDTH 15.7 % (11.5-14.5); WHITE BLOOD COUNT (AUTO) 2.8 K/uL (4.5-11.0)
[2017-03-29 11:12] LABS: ANION GAP 9 mmol/L (8-16); CALCIUM, TOTAL 9.2 mg/dL (8.8-10.5); CARBON DIOXIDE 26 mmol/L (22-29); CHLORIDE 107 mmol/L (98-107); CREATININE 0.63 mg/dL (0.60-1.30); GLOMERULAR FILTR. RATE CALC > 60 mL/min (>60); POTASSIUM 4.3 mmol/L (3.5-5.1); SODIUM SERUM 142 mmol/L (136-145); UREA NITROGEN, BLOOD 8 mg/dL (7-18)
[2017-03-29 11:18] LABS: ALANINE AMINOTRANSFERASE 17 U/L (12-78); ALBUMIN 3.5 g/dL (3.4-5.0); ASPARTATE AMINOTRANSFERASE 25 U/L (15-37); BILIRUBIN,TOTAL 0.8 mg/dL (0.1-1.0); TOTAL PROTEIN, SERUM 7.7 g/dL (6.4-8.2)
[2017-03-29] MEDS ORDERED: PROPOFOL 1% 20 ML VIAL IVP ONE (12:00)
[2017-03-29] MEDS ORDERED: FentaNYL CITRATE-PF 100 MCG/2 ML VIAL IVP ONE (12:00)
[2017-03-29 12:40] LABS: INR 1.2 (0.9-1.1); PROTHROMBIN TIME 12.4 SEC (9.4-11.6)
[2017-03-29] MEDS ORDERED: ACETAMINOPHEN 325 MG TABLET PO PRN (14:15)
[2017-03-29] MEDS ORDERED: 0.9% SODIUM CHLORIDE 10 ML SYRINGE IVP PRN (14:15)
[2017-03-29] MEDS ORDERED: ONDANSETRON HCL 4 MG/2 ML VIAL IVP PRN (14:15)
[2017-03-29] MEDS ORDERED: LIDOCAINE HCL 2%/EPI 1:200,000/PF 10 ML VIAL ONE (16:39)
[2017-03-29] MEDS ORDERED: VANCOMYCIN HCL 1 GM/VIAL ONE (16:39)
[2017-03-29] MEDS ORDERED: GUM MASTIC/STORAX/MSAL/ALCOHOL LIQUID 0.67 ML VIAL TP ONE (16:39)
[2017-03-29] MEDS ORDERED: HEPARIN SODIUM 1000 UNITS/NS 0 ML ONE (16:39)
[2017-03-29] MEDS ORDERED: GELATIN SPONGE,ABSORBABLE 100 MM TP ONE (16:39)
[2017-03-29] MEDS ORDERED: SODIUM CHLORIDE 0.9% 100 ML ONE (16:39)
[2017-03-29] MEDS ORDERED: THROMBIN, BOVINE 20000 UNITS/VIAL POWDER TP ONE (16:39)
[2017-03-29] MEDS ORDERED: HYDROmorphone 2 MG/ML SYRINGE IVP PRN ×2 (16:45→17:15)
[2017-03-29] MEDS ORDERED: OxyCODONE HCL/ACETAMINOPHEN 10-325 MG TABLET PO PRN (16:45)
[2017-03-29] MEDS: CeFAZolin 2 GM/DEXTROSE 50 ML IV SCH (17:04)
[2017-03-29] MEDS ORDERED: FentaNYL CITRATE-PF 100 MCG/2 ML VIAL IVP PRN (17:15)
[2017-03-29] MEDS ORDERED: MEPERIDINE-PF 25 MG/ML SYRINGE IVP PRN (17:15)
[2017-03-29] MEDS ORDERED: BACITRACIN 28.4 GM OINTMENT TP ONE (17:22)
[2017-03-29] MEDS ORDERED: LIDOCAINE HCL 1%/EPI 1:200,000/PF 10 ML VIAL ONE (17:22)
[2017-03-29] MEDS ORDERED: LIDOCAINE HCL/PF 1% 30 ML VIAL ONE (17:23)
[2017-03-29] MEDS: OXYGEN THERAPY IH SCH (20:00)
[2017-03-29 20:24] VITALS: BP 124/56
[2017-03-29 23:55] VITALS: BP 100/51
[2017-03-30] MEDS: CeFAZolin 2 GM/DEXTROSE 50 ML IV SCH (00:36)
[2017-03-30 04:44] VITALS: BP 114/58
[2017-03-30 06:20] LABS: BASOPHILS % (AUTO) 0.4 % (0.0-2.0); HEMATOCRIT 26.6 % (41-53); HEMOGLOBIN 9.4 g/dL (13.5-17.5); LYMPHOCYTES # (AUTO) 0.7 K/uL (1.0-4.8); LYMPHOCYTES % (AUTO) 20.3 % (22.0-44.0); MEAN CORPUSCULAR HEMOGLOBIN 33.7 pg (26.0-34.0); MEAN CORPUSCULAR HGB CONC 35.2 G/dL (31.0-37.0); MEAN CORPUSCULAR VOLUME 96 fL (80-100); MONOCYTES # (AUTO) 0.2 K/uL (0.1-1.0); MONOCYTES % (AUTO) 6.8 % (2.0-9.0); NEUTROPHILS # (AUTO) 2.3 K/uL (1.8-7.7); NEUTROPHILS % (AUTO) 69.5 % (40.0-70.0); PLATELET COUNT (AUTO) 53 K/uL (150-450); RED BLOOD CELL COUNT(AUTO) 2.78 MIL/uL (4.50-5.90); RED CELL DISTRIBUTION WIDTH 15.2 % (11.5-14.5); WHITE BLOOD COUNT (AUTO) 3.3 K/uL (4.5-11.0)
[2017-03-30] MEDS: OXYGEN THERAPY IH SCH (08:00)
[2017-03-30 08:07] VITALS: BP_SYST 88; BP_SYST 98; BP_DIAS 44
[2017-03-30 08:08] VITALS: BP 91/40
[2017-03-30 12:11] VITALS: BP 99/55
== END 2017-03-30 13:28 | disposition home or self-care (01) | DRG 173 ==
LOC: EMS 09:17 → 4E 14:54
PROVIDERS: ADMIT Internal Medicine; ATTEND Internal Medicine
PROC: 03LS0ZZ Occlusion of Right Temporal Artery, Open Approach (ICD-10-PCS; 2017-03-29)
PROC: 03C Upper Arteries, Extirpation (ICD-10-PCS; principal; 2017-03-29 17:00)
DX: I72.8 Aneurysm of other specified arteries (principal); F10.10 Alcohol abuse, uncomplicated; R23.4 Changes in skin texture
CPT/HCPCS: 70450; 86850; 86900; 86901; 86920; 87081; 99285; J0690; J1644; J2704; J3010; J3370; J3490; J7050